=== PATIENT | male | born 2000 | race Caucasian/White ===

== ENCOUNTER 2024-04-22 04:02 | Day surgery (SDC) | payer OTHER ==
[~2024-04-22] VITALS: Ht 180.3 cm; Wt 67.3 kg
[2024-04-22] VITALS (209 sets, daily range): BP systolic 92–150; BP diastolic 40–116
[2024-04-22] MEDS ORDERED: diazePAM 5 MG/TAB PO PRN ×2 (07:30→08:30)
[2024-04-22] MEDS ORDERED: PANTOPRAZOLE SODIUM Sesquihydr 40 MG/TAB PO PRN (07:30)
[2024-04-22] MEDS ORDERED: LACTATED RINGER'S 1,000 ML IV PRN ×3 (07:30→19:00)
[2024-04-22] MEDS ORDERED: SCOPOLAMINE 1.5 MG DIS TD PRN (07:30)
[2024-04-22] MEDS ORDERED: cloNIDine HCL 0.1 MG/TAB PO PRN (07:30)
[2024-04-22] MEDS ORDERED: ALBUTEROL SULFATE 2.5 MG VIAL IN PRN (07:30)
[2024-04-22] MEDS ORDERED: CYANOCOBALAMIN 500 MCG/TAB ( B12) PO PRN (07:30)
[2024-04-22] MEDS ORDERED: FAMOTIDINE 20 MG/TAB PO PRN (07:30)
[2024-04-22] MEDS ORDERED: ASCORBIC ACID 4,000 MG in SODIUM CHLORIDE 0.9% 1,000 ML IV SCH (08:00)
[2024-04-22 08:29] LABS: BASO% 0.7 % (0-3); HEMATOCRIT 40.5 % (39.0-50.0); HEMOGLOBIN 13.7 g/dl (14.0-18.0); LYMPH% 32.8 % (15-41); MEAN CELL VOLUME 85.8 fL CALC (80.0-100.0); MEAN CORPUSCULAR HGB CONC 33.8 g/dL CAL (32.0-36.0); MONO% 5.7 % (2-13); NEUT# 2.56 thou/uL (1.82-7.42); NEUT% 60.8 % (42-76); RED BLOOD COUNT 4.72 mill/uL (4.70-6.10)
[2024-04-22] MEDS ORDERED: FAMOTIDINE20 M1 PO (08:42)
[2024-04-22 08:57] LABS: ALBUMIN 4.1 g/dL (3.2-5.0); BILIRUBIN, TOTAL 0.4 mg/dL (0.2-1.3); CREATININE 0.9 mg/dL (0.7-1.3); POTASSIUM 4.1 mmol/l (3.5-5.1); TOTAL PROTEIN 6.6 g/dL (6.3-8.2)
[2024-04-22] MEDS ORDERED: cloNIDine HCL 0.1 MG/TAB VT PRN (09:35)
[2024-04-22] MEDS ORDERED: OCTREOTIDE ACETATE 100 MCG/VIAL SDV SC PRN (09:35)
[2024-04-22] MEDS ORDERED: MIDAZOLAM HCL 2 MG/2 ML VIAL IV PRN (09:35)
[2024-04-22] MEDS ORDERED: diazePAM 5 MG/TAB VT PRN (09:35)
[2024-04-22] MEDS ORDERED: STERILE WATER FOR IRRIGATION 1,000 ML BTL IR PRN (09:35)
[2024-04-22] MEDS ORDERED: SUCCINYLCHOLINE CHLORIDE 20 MG/ML 10ML VIAL IV PRN (09:35)
[2024-04-22] MEDS ORDERED: PROPOFOL 100 ML IV PRN (09:35)
[2024-04-22] MEDS ORDERED: DEXAMETHASONE SODIUM PHOSPHATE PF 10 MG/ML SDV IV PRN ×2 (09:35→19:00)
[2024-04-22] MEDS ORDERED: ONDANSETRON HCl 4 MG/2 ML SDV IV PRN ×3 (09:35→19:00)
[2024-04-22] MEDS ORDERED: LIDOCAINE HCL 1% (10MG/ML) 100 MG/10 ML MDV IV PRN (09:35)
[2024-04-22] MEDS ORDERED: ROCURONIUM BROMIDE 10 MG/ML 5ML VIAL IV PRN (09:35)
[2024-04-22] MEDS ORDERED: PROPOFOL 10 MG/ML 100ML VIAL IV PRN (09:35)
[2024-04-22] MEDS ORDERED: THIAMINE HCL 100 MG/ML 2ML VIAL IV PRN (09:35)
[2024-04-22] MEDS ORDERED: NALTREXONE HCL 50 MG/TAB VT PRN (09:35)
[2024-04-22] MEDS ORDERED: DiphenhydrAMINE HCL 50 MG/ML SDV IV PRN (09:35)
[2024-04-22] MEDS ORDERED: POTASSIUM CHLORIDE 20 MEQ/100 ML BAG IV PRN (09:35)
[2024-04-22] MEDS ORDERED: MAGNESIUM SULFATE HEPTAHYDRATE 100 ML IV PRN (09:35)
[2024-04-22] MEDS ORDERED: LIDOCAINE HCL 1% (10MG/ML) 100 MG/10 ML MDV VT PRN ×2 (09:35)
[2024-04-22] MEDS ORDERED: cloNIDine HYDROCHLORIDE 100 MCG/ML 10 ML INJ IV PRN (09:35)
[2024-04-22] MEDS ORDERED: NALTREXONE50 MG PO (15:08)
[2024-04-22] MEDS ORDERED: CLONIDINE0.1 MG PO (15:08)
[2024-04-22] MEDS ORDERED: KLONOPIN2 MG PO (15:09)
[2024-04-22] MEDS ORDERED: PROMETHAZINE HCL 12.5 MG in SODIUM CHLORIDE 0.9% 50 ML IV PRN (19:00)
[2024-04-22] MEDS ORDERED: ACETAMINOPHEN 500 MG TAB PO PRN (19:00)
[2024-04-22] MEDS ORDERED: PROMETHAZINE HCL 25 MG in SODIUM CHLORIDE 0.9% 50 ML IV PRN (19:00)
[2024-04-22] MEDS ORDERED: ACETAMINOPHEN 1,000 MG/100 ML VIAL IV PRN (19:00)
[2024-04-22] MEDS ORDERED: KETOROLAC TROMETHAMINE 30 MG/ML SDV IV PRN (19:00)
[2024-04-22] MEDS ORDERED: HALOPERIDOL LACTATE 5 MG/ML SDV IV PRN (19:00)
[2024-04-22] MEDS ORDERED: diazePAM 10 MG/2 ML VIAL IV PRN (21:00)
[2024-04-22] MEDS ORDERED: PATIENT' OWN MED CONTROLLED 1 EA DOSE IV PRN (21:00)
[2024-04-22] MEDS ORDERED: cloNIDine HCL 0.1 MG/TAB PO SCH (23:00)
[2024-04-22] MEDS ORDERED: clonazePAM 1 MG/TAB PO SCH (23:00)
[2024-04-23] MEDS ORDERED: cloNIDine HCL 0.1 MG/TAB PO PRN (04:00)
[2024-04-23] MEDS ORDERED: clonazePAM 1 MG/TAB PO PRN ×2 (04:00→08:00)
[2024-04-23 04:15] VITALS: BP 102/42
[2024-04-23 04:22] VITALS: BP 102/42
[2024-04-23 04:57] LABS: BASO% 0.2 % (0-3); HEMATOCRIT 35.7 % (39.0-50.0); HEMOGLOBIN 12.6 g/dl (14.0-18.0); LYMPH% 26.8 % (15-41); MEAN CELL VOLUME 84.8 fL CALC (80.0-100.0); MEAN CORPUSCULAR HGB 29.9 pG CALC (26.0-32.0); MEAN CORPUSCULAR HGB CONC 35.3 g/dL CAL (32.0-36.0); MONO% 1.3 % (2-13); NEUT# 3.23 thou/uL (1.82-7.42); NEUT% 71.7 % (42-76); RED BLOOD COUNT 4.21 mill/uL (4.70-6.10); RED CELL DISTRI WIDTH 12.7 % (11.5-15.5)
[2024-04-23 05:12] LABS: ALBUMIN 3.5 g/dL (3.2-5.0); CREATININE 0.8 mg/dL (0.7-1.3); MAGNESIUM 2.1 mg/dL (1.6-2.3); POTASSIUM 4.1 mmol/l (3.5-5.1); TOTAL PROTEIN 5.9 g/dL (6.3-8.2)
[2024-04-23 05:17] LABS: BILIRUBIN, TOTAL 0.6 mg/dL (0.2-1.3)
[2024-04-23 07:53] VITALS: BP 101/68
[2024-04-23] MEDS ORDERED: ACETAMINOPHEN 325 MG/TAB PO SCH (08:00)
[2024-04-23] MEDS ORDERED: PANTOPRAZOLE SODIUM Sesquihydr 40 MG/TAB PO SCH (08:00)
[2024-04-23] MEDS ORDERED: NALTREXONE HCL 50 MG/TAB PO SCH (08:00)
[2024-04-23] MEDS ORDERED: cloNIDine HCL 0.1 MG/TAB PO SCH (08:00)
[2024-04-23 08:03] VITALS: BP 101/68
[2024-04-23] MEDS ORDERED: MAGNESIUM OXIDE 400 MG/TAB PO PRN (09:00)
[2024-04-23] MEDS ORDERED: Cholecalciferol 2,000 UNIT/TAB PO PRN (09:00)
[2024-04-23] MEDS ORDERED: ACETAMINOPHEN 500 MG TAB PO PRN (09:00)
== END 2024-04-23 16:30 | disposition home or self-care (01) | DRG 897 ==
LOC: EDBD 04:02 → ANR 04:02 → MS2 04:02 → ANR 07:00
PROVIDERS: ATTEND Anesthesiology
DX: F11.20 Opioid dependence, uncomplicated (principal)
CPT/HCPCS: J0131; J1100; J2354; J3475